=== PATIENT | female | born 1940 | race Hispanic/Latino ===

== ENCOUNTER → 2021-02-18 | Outpatient (CLI) | payer OTHER | END | disposition home or self-care (01) | LOC: RAH 13:53 | PROVIDERS: ATTEND Psychiatry & Neurology Neurology | DX: G31.89 Other specified degenerative diseases of nervous system (principal); F02.80 Dementia in other diseases classified elsewhere, unspecified severity, without behavioral disturbance, psychotic disturbance, mood disturbance, and anxiety; G30.1 Alzheimer's disease with late onset | CPT/HCPCS: 70450 ==